=== PATIENT | male | born 1955 | race Caucasian/White ===

== ENCOUNTER 2021-02-25 16:39 | Emergency (ER) | payer MEDICAID ==
[2021-02-25] MEDS ORDERED: AMPICILLIN/SULBACTAM 3 GM in SODIUM CHLORIDE 0.9% MINIBAG 100 ML IV STA (18:42)
[2021-02-25] MEDS ORDERED: TETANUS/DIPHTHERIA/PERTUSSIS 0.5 ML SYRINGE IM ONE (18:42)
--- NOTE | 2021-02-25 18:44 | ED Physician Documentation ---
PD HPI LOWER EXT INJURY - Stated complaint Stated Complaint: RT FOOT PX - Chief complaint Chief Complaint: Ext Problem - History obtained from History obtained from: Patient (Scratch on his right foot by his cat 2 days ago and last night developed progressive pain and redness to the top of the right foot. Tetanus is unknown. No fevers.) Review of Systems Constitutional: denies: Fever, Chills Eyes: denies: Loss of vision, Decreased vision Nose: reports: Reviewed and negative Throat: reports: Reviewed and negative PD PAST MEDICAL HISTORY - Present Medications Home Medications: Ambulatory Orders Medication Instructions Recorded Confirmed Amox/Clav 875/125 [Augmentin] 1 each PO Q12H #20 tablet 02/25/21 - Allergies Allergies/Adverse Reactions: Allergies Allergy/AdvReac Type Severity Reaction Status Date / Time No Known Drug Allergies Allergy Verified 02/25/21 16:43 PD ED PE NORMAL - Vitals Vital signs reviewed: Yes - General General: Alert and oriented X 3, No acute distress - HEENT HEENT: PERRL, EOMI - Neck Neck: Supple, no meningeal sign, No bony TTP - Derm Derm: Other (There are a few puncture wounds on the top of the medial right forefoot. There is mild surrounding cellulitis. No redness of the calf, no palpable abscess, no drainage.) - Neuro Neuro: Alert and oriented X 3, Normal speech Results - Vitals Vitals: Vital Signs - 24 hr 02/25/21 16:43 Temperature 36.9 C Heart Rate 64 Respiratory 18 Rate Blood Pressure 200/100 H O2 Saturation 96 Oxygen O2 Source Room air PD MEDICAL DECISION MAKING - ED course ED course: 66-year-old gentleman presents with cat bite wound with signs of infection. He is given an IV dose of Unasyn here and Augmentin home-going. Tetanus is Updated. Departure - Departure Disposition: Home, Self Care Clinical Impression: Cellulitis Qualifiers: Site of cellulitis of extremity: lower extremity Laterality: right Condition: Good Record reviewed to determine appropriate education?: Yes Instructions: ED Infec Skin Cellulitis Prescriptions: Amox/Clav 875/125 [Augmentin] 1 each PO Q12H #20 tablet Comments: Return if worsening. Keep the foot elevated is much as possible. Recheck with your physician in 3 to 5 days.
[2021-02-25 20:02] VITALS: BP 124/90
== END 2021-02-25 20:13 | disposition home or self-care (01) ==
LOC: ED 16:39
DX: L03.115 Cellulitis of right lower limb (principal); W55.03XA Scratched by cat, initial encounter; Z23 Encounter for immunization
CPT/HCPCS: 90471; 96365; 99284

== ENCOUNTER 2022-05-04 14:10 | Outpatient (CLI) | payer OTHER ==
--- NOTE | 2022-05-04 19:48 | DEXA Report ---
PROCEDURE: Dexa Spine and/or Hip INDICATIONS: HYPERCALCEMIA TECHNIQUE: Dual energy x-ray absorptiometry (DXA) was performed on a [employer] System. Regions measur ed are the AP Spine, femoral neck, and left forearm due to history of hyperparathyroidism. COMPARISON: None. FINDINGS: Lumbar Spine: Bone Mineral Density 1.375 g/cm/cm,T score 1.3. Left Hip: Bone Mineral Density 1.021 g/cm/cm,T score -0.6. Left Femoral Neck: Bone Mineral Density 0.952 g/cm/cm, T score -0.9. Left forearm: Bone Mineral Density 0.938 g/cm/cm, T score -0.5. (T score greater or equal to -1.0: NORMAL) (T score from -1.1 to -2.4: OSTEOPENIA) (T score less than or equal to -2.5 to: OSTEOPOROSIS) Impression: Normal bone mineral density. Patients with diagnosis of osteoporosis or osteopenia should have regular bone mineral density assess ment. For those eligible for Medicare, routine testing is allowed once every 2 years. Testing frequ ency can be increased for patients who have rapidly progressing disease or for those who are receivin g medical therapy to restore bone mass. Reviewed by: Kike Cifuentes MD on 05/04/2022 7:46 PM PDT Approved by: Kike Cifuentes MD on 05/04/2022 7:46 PM PDT Station ID: [id number]
== END 2022-05-04 14:11 | disposition home or self-care (01) ==
LOC: DI 14:10
PROVIDERS: ATTEND Internal Medicine
DX: E83.52 Hypercalcemia (principal); E21.3 Hyperparathyroidism, unspecified

== ENCOUNTER 2022-08-07 08:34 | Outpatient (CLI) | payer MEDICARE, MEDICAID ==
--- NOTE | 2022-08-07 16:08 | MRI Report ---
PROCEDURE: KNEE WO - RT INDICATIONS: RIGHT KNEE PAIN TECHNIQUE: Noncontrast sagittal PD fast spin echo and T2 fast spin echo with fat saturation, sagittal 3-D gradie nt sequence with fat saturation; coronal T1 spin echo and PD fast spin echo with fat saturation, and axial PD fast spin echo with fat saturation through the knee. COMPARISON: None. FINDINGS: Image quality: Excellent. Menisci: There is a complex tear involving the posterior horn and body of the patient's medial menisc us extending to superior and inferior joint surfaces. Lateral meniscus appears within normal limits. Cruciate ligaments: The anterior and posterior cruciate ligaments appear intact. Medial structures: The medial collateral ligament appears intact. The posterior oblique ligament, s emimembranosus tendon insertions, and oblique popliteal ligament, and meniscocapsular junction appear intact. Visualized portions of the pes anserinus tendons appear normal. No abnormal bursal fluid. Lateral structures: There is a moderate thickening and increased signal involving the proximal aspect of the lateral collateral ligament complex is attachment on the femur suggesting prior scarring and remote injury. No full-thickness tear is seen.. Long and short heads of the biceps femoris tendon norberto ear intact. The popliteus tendon appears normal; the popliteofibular ligament appears intact. The p osterosuperior and anteroinferior popliteomeniscal fascicles appear intact. The arcuate and fabellof ibular ligaments appear intact, around the lateral inferior geniculate artery. Iliotibial band appea rs normal. Anterior structures: The quadriceps and patellar tendons appear intact. Patellar alignment is anisa l. No femoral trochlear dysplasia or ventral trochlear prominence. No edema in the infrapatellar fa t pad. Bones and cartilage: No bone marrow contusions or fractures. There is moderate chondromalacia involv ing the articular surface of the medial compartment as well as the patellofemoral joint. Joint space: There is a small knee joint effusion present. No Espinoza's cyst. Normal appearing synovia l plicae are incidentally noted. IMPRESSION: 1. Complex tear involving the posterior horn and body of the patient's medial meniscus extending to s uperior and inferior joint surfaces 2. 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 3. Thickening and increased signal involving the proximal lateral collateral ligament complex at the attachment on the femur suggesting prior injury and scarring. 4. Small knee joint effusion. Reviewed by: Alejandro Mcmahon MD on 08/07/2022 4:07 PM PST Approved by: Alejandro Mcmahon MD on 08/07/2022 4:07 PM PST Station ID: [id number]
== END 2022-08-07 08:35 | disposition home or self-care (01) ==
LOC: DI 08:34
PROVIDERS: ATTEND Internal Medicine
DX: S83.231A Complex tear of medial meniscus, current injury, right knee, initial encounter (principal); M94.261 Chondromalacia, right knee; M25.461 Effusion, right knee

== ENCOUNTER 2022-09-19 15:08 | Outpatient (CLI) | payer MEDICARE, MEDICAID ==
--- NOTE | 2022-09-19 17:30 | XRAY Report ---
PROCEDURE: Knee 4 View RT INDICATIONS: RIGHT KNEE PAIN TECHNIQUE: 4 views of the right knee(s) were acquired. COMPARISON: None. FINDINGS: Bones: No fractures or dislocations. Mild to moderate tricompartmental osteoarthritis is seen most notably in medial femoral tibial compartment. No suspicious bony lesions. Soft tissues: Small suprapatellar joint effusion is noted. No suspicious soft tissue calcifications . IMPRESSION: Mild to moderate tricompartmental osteoarthritis and small suprapatellar joint effusion. No fracture or dislocation. Reviewed by: Kike Cifuentes MD on 09/19/2022 5:29 PM PST Approved by: Kike Cifuentes MD on 09/19/2022 5:29 PM PST Station ID: [id number]
== END 2022-09-19 15:10 | disposition home or self-care (01) ==
LOC: DI.WOS 15:08
PROVIDERS: ATTEND Physician Assistant Surgical
DX: M17.11 Unilateral primary osteoarthritis, right knee (principal); M25.461 Effusion, right knee

== ENCOUNTER 2023-04-18 12:12 | Emergency (ER) | payer MEDICARE, MEDICAID ==
--- NOTE | 2023-04-18 12:40 | ED Physician Documentation ---
History of Present Illness - Stated complaint Stated Complaint: R HAND REDNESS/SWELLING - Chief complaint Chief Complaint: Ext Problem - Additonal information Additional information: 68-year-old male presents to the emergency department for evaluation of right arm cellulitis. He reports that about 6 days ago he began having some pain on the top of his forearm and thought maybe he had tendinitis from painting. However since then he has developed subsequent redness and swelling. He does report that his cat can be somewhat feral and may have bitten him 1 to 2 weeks ago. There appeared to be 2 bite lynn on the dorsum of his right hand. He did see Dr. Krishnamurthy for the cellulitis yesterday and was started on Augmentin. He has been on it now 24 hours and does not feel that the swelling or redness has improved. No fevers. Review of Systems Constitutional: reports: Reviewed and negative Cardiac: reports: Reviewed and negative Respiratory: reports: Reviewed and negative GI: reports: Reviewed and negative Skin: reports: Bite / sting Musculoskeletal: reports: Extremity pain, Extremity swelling PD PAST MEDICAL HISTORY - Past Medical History Past Medical History: Yes Cardiovascular: Hypertension, High cholesterol, Atrial fibrillation Respiratory: None Neuro: None Endocrine/Autoimmune: None GI: None : None HEENT: None Psych: None Musculoskeletal: None Derm: None - Past Surgical History Past Surgical History: No - Present Medications Home Medications: Ambulatory Orders Medication Instructions Recorded Confirmed Amlodipine Besylate [Norvasc] 10 mg PO DAILY 02/25/21 02/25/21 Apixaban [Eliquis] 5 mg PO BID 02/25/21 02/25/21 Atorvastatin Calcium 40 mg PO DAILY 02/25/21 02/25/21 Sotalol HCl [Betapace AF] 120 mg PO BID 02/25/21 02/25/21 carvediloL [Coreg] 6.25 mg PO BID 02/25/21 02/25/21 lisinopriL [Lisinopril] 20 mg PO DAILY 02/25/21 02/25/21 Doxycycline Hyclate 100 mg PO BID #20 cap 04/18/23 metroNIDAZOLE [Flagyl] 500 mg PO TID 10 Days #30 tablet 04/18/23 - Allergies Allergies/Adverse Reactions: Allergies Allergy/AdvReac Type Severity Reaction Status Date / Time No Known Drug Allergies Allergy Verified 04/18/23 12:21 - Social History Does the pt smoke?: No Smoking Status: Never smoker Does the pt drink ETOH?: Yes Does the pt have substance abuse?: No - Immunizations Immunizations are current?: No - POLST Patient has POLST: No PD ED PE NORMAL - General General: Alert and oriented X 3, No acute distress, Well developed/nourished - HEENT HEENT: Atraumatic, Moist mucous membranes - Neck Neck: Supple, no meningeal sign - Cardiac Cardiac: RRR, No murmur - Respiratory Respiratory: No respiratory distress, Clear bilaterally - Abdomen Abdomen: Normal bowel sounds, Soft, Non tender - Derm Derm: Other (right forearm with swelling erythema and mild induration from the dorsum of the hand to just proximal to the elbow. Soft compartments. Normal flexion extension hand and wrist. 2+ radial pulse. bite wound on dorsum of hand) - Extremities Extremities: No deformity - Neuro Neuro: Alert and oriented X 3 Eye Opening: Spontaneous Motor: Obeys Commands Verbal: Oriented GCS Score: 15 Results - Vitals Vitals: Vital Signs - 24 hr 04/18/23 12:17 Temperature 36.5 C Heart Rate 78 Respiratory 16 Rate Blood Pressure 150/101 H O2 Saturation 94 Oxygen O2 Source Room air - Labs Labs: Laboratory Tests 04/18/23 04/18/23 12:49 12:49 WBC 6.9 RBC 4.92 Hgb 14.3 Hct 43.5 MCV 88.4 MCH 29.1 MCHC 32.9 RDW 13.2 Plt Count 251 MPV 8.7 Neut # (Auto) 4.3 Lymph # (Auto) 1.8 Briscoe # (Auto) 0.6 Eos # (Auto) 0.2 Baso # (Auto) 0.0 Absolute Nucleated RBC 0.00 Nucleated RBC % 0.0 Sodium 140 Potassium 3.8 Chloride 109 Carbon Dioxide 23 Anion Gap 8.0 BUN 20 Creatinine 1.0 Estimated GFR (MDRD) 75 L Glucose 101 H Calcium 8.7 Total Bilirubin 0.6 AST 15 ALT 16 Alkaline Phosphatase 62 Total Protein 7.3 Albumin 3.6 Globulin 3.7 Albumin/Globulin Ratio 1.0 Lipase 25 PD Medical Decision Making - ED course Complexity details: reviewed results, re-evaluated patient, d/w patient ED course: 68-year-old male presents emergency department for evaluation of what he believes is worsening right hand and forearm cellulitis. He sustained a cat bite on the dorsum of his right hand sometime in the last 2 weeks but over the last 6 days he has developed progressive redness erythema and induration. Has had no fevers. Was seen at Dr. Krishnamurthy's office yesterday and started on Augmentin. He states that despite taking 3 doses of Augmentin he has had no c hange in symptoms. I elected to perform blood cultures, CBC and electrolytes. Per my interpretation no acute worrisome findings or leukocytosis. Blood cultures are pending. I discussed with patient that as he feels the Augmentin is not yet had therapeutic effect we could consider an antibiotic regimen change and in reading up to date the new antibiotics to be considered would include doxycycli ne and Flagyl. Clinically the patient does not have evidence of tenosynovitis on exam nor does he have evidence of a compartment syndrome thus advanced imaging was deferred. He is discharged home in stable condition with the usual emergent return precautions worsening symptoms discussed. Departure - Departure Disposition: 01 Home, Self Care Clinical Impression: Right arm cellulitis Cat bite of hand Qualifiers: Encounter type: initial encounter Laterality: right Qualified Code(s): S61.451A - Open bite of right hand, initial encounter; W55.01XA - Bitten by cat, initial encounter Condition: Stable Record reviewed to determine appropriate education?: Yes Instructions: Cellulitis Dc Prescriptions: Doxycycline Hyclate 100 mg PO BID #20 cap metroNIDAZOLE [Flagyl] 500 mg PO TID 10 Days #30 tablet Comments: You have cat bite cellulitis of your right hand and forearm. You were started on Augmentin yesterday. You do not feel that is yet had enough of an effect therefore we will change her antibiotics to doxycycline which she will take twice daily for 10 days and Flagyl which she will take 3 times a day for the next 10 days. Please stop the Augmentin. While on the doxycycline please avoid sun exposure and if you are outside cover up your arms and wear a hat as you can develop a rash while on doxycycline. In general I would give the antibiotics 48 to 72 hours before we declare treatment failure. If at any point however you are having worsening symptoms, red streaking or develop fevers please return to the ER for repeat evaluation Forms: PCP List
--- OUTSIDE RECORDS SUMMARY | 2023-04-18 12:48 | EXTERNAL MEDICAL SUMMARY RPT | Continuity of Care Document ---
Author Name Unknown Address [address] [place] [address] Phone Organization [facility] Address [address] [place] [address] Phone Care Team Providers Care Merchandising Team Lead Name Role Phone Amparo Sterling Pa-C Unavailable Unavailable [place] Chelsie Unavailable Unavaila ble Medications date description facility 2023-02-12 00:00 apixaban [facility] 2023-04-12 00:00 apixaban [facility] 2023-02-12 00:00 sotalol All 2023-04-12 00:00 sotalol All 2023-02-12 00:00 lisinopril All 2023-04-12 00:00 lisinopril All 2023-02-12 00:00 lisinopril All 2023-04-12 00:00 lisinopril All 2023-02-12 00:00 apixaban All 2023-04-12 00:00 apixaban All 2023-02-12 00:00 apixaban All 2023-04-12 00:00 apixaban All 2023-02-12 00:00 sotalol All 2023-04-12 00:00 sotalol All 2023-02-12 00:00 carvedilol All 2023-04-12 00:00 carvedilol All 2023-02-12 00:00 amlodipine All 2023-04-12 00:00 amlodipine All 2023-02-12 00:00 amlodipine All 2023-04-12 00:00 amlodipine All 2023-02-12 00:00 lisinopril All 2023-04-12 00:00 lisinopril All 2023-02-12 00:00 sotalol All 2023-04-12 00:00 sotalol All 2023-02-12 00:00 metoprolol tartrate All 2023-04-12 00:00 metoprolol tartrate All 2023-02-12 00:00 carvedilol All 2023-04-12 00:00 carvedilol All 2023-02-12 00:00 amlodipine All 2023-04-12 00:00 amlodipine All 2023-02-12 00:00 lisinopril All 2023-04-12 00:00 lisinopril All 2023-02-12 00:00 atorvastatin All 2023-04-12 00:00 atorvastatin All 2023-02-12 00:00 sotalol All 2023-04-12 00:00 sotalol All 2023-02-12 00:00 carvedilol All 2023-04-12 00:00 carvedilol All 2023-02-12 00:00 atorvastatin All 2023-04-12 00:00 atorvastatin All 2023-02-12 00:00 metoprolol tartrate All 2023-04-12 00:00 metoprolol tartrate All 2023-02-12 00:00 amlodipine All 2023-04-12 00:00 amlodipine All 2023-02-12 00:00 atorvastatin All 2023-04-12 00:00 atorvastatin All 2023-02-12 00:00 atorvastatin All 2023-04-12 00:00 atorvastatin All 2023-02-12 00:00 carvedilol All 2023-04-12 00:00 carvedilol All 2023-02-12 00:00 metoprolol tartrate All 2023-04-12 00:00 metoprolol tartrate All 2023-02-12 00:00 apixaban All 2023-04-12 00:00 apixaban All 2023-02-12 00:00 metoprolol tartrate All 2023-04-12 00:00 metoprolol tartrate All Social History date description facility 2023-02-12 00:00 Never smoker All 2023-02-12 00:00 Never smoker All
[2023-04-18 13:05] LABS: BASOPHILS % (AUTO) 0.6 %; EOSINOPHILS # (AUTO) 0.2 10^3/uL (0.0-0.7); EOSINOPHILS % (AUTO) 2.8 %; HCT - HEMATOCRIT 43.5 % (42.0-52.0); HGB - HEMOGLOBIN 14.3 g/dL (14.0-18.0); LYMPHOCYTES # (AUTO) 1.8 10^3/uL (1.5-3.5); LYMPHOCYTES % (AUTO) 26.6 %; MEAN CORPUSCULAR HEMOGLOBIN 29.1 pg (27.0-31.0); MEAN CORPUSCULAR HGB CONC 32.9 g/dL (32.0-36.0); MEAN CORPUSCULAR VOLUME 88.4 fL (80.0-94.0); MEAN PLATELET VOLUME 8.7 fL (7.4-11.4); MONOCYTES # (AUTO) 0.6 10^3/uL (0.0-1.0); NEUTROPHILS # (AUTO) 4.3 10^3/uL (1.5-6.6); NEUTROPHILS % (AUTO) 61.7 %; PLT - PLATELET COUNT 251 10^3/uL (130-450); RED BLOOD COUNT 4.92 10^6/uL (4.70-6.10); RED CELL DISTRIBUTION WIDTH 13.2 % (12.0-15.0); WHITE BLOOD COUNT 6.9 x10^3/uL (4.8-10.8)
[2023-04-18 13:18] LABS: ALBUMIN 3.6 g/dL (3.2-5.5); BILIRUBIN,TOTAL 0.6 mg/dL (0.2-1.0); CALCIUM 8.7 mg/dL (8.5-10.3); POTASSIUM 3.8 mmol/L (3.5-5.0); TOTAL PROTEIN 7.3 g/dL (6.7-8.2)
[2023-04-18 13:45] VITALS: BP 151/80; O2SAT 96
== END 2023-04-18 13:35 | disposition home or self-care (01) ==
LOC: ED 12:12
DX: L03.113 Cellulitis of right upper limb (principal); S61.451A Open bite of right hand, initial encounter; W55.01XA Bitten by cat, initial encounter
CPT/HCPCS: 36415; 80053; 83690; 85025; 87040; 99283; 99284

== ENCOUNTER 2023-11-08 16:07 | Outpatient (CLI) | payer MEDICARE, MEDICAID ==
[2023-11-08 17:05] LABS: CALCIUM 9.5 mg/dL (8.5-10.3); CREATININE 0.9 mg/dL (0.6-1.3); MAGNESIUM 2.1 mg/dL (1.7-2.3)
[2023-11-08 20:59] LABS: ESTIMATED AVERAGE GLUCOSE 111 mg/dL (70-100); HEMOGLOBIN A1c% 5.5 % (4.27-6.07)
== END 2023-11-08 16:08 | disposition home or self-care (01) ==
LOC: LAB 16:07
PROVIDERS: ATTEND Internal Medicine
DX: E83.52 Hypercalcemia (principal); R73.01 Impaired fasting glucose; M62.838 Other muscle spasm; R20.0 Anesthesia of skin; R52 Pain, unspecified
CPT/HCPCS: 36415; 80048; 82550; 83036; 83735